=== PATIENT | male | born 1950 | race Caucasian/White ===

== ENCOUNTER → 2018-11-18 | Day surgery (SDC) | payer OTHER ==
[2018-11-14 12:13] LABS: BASOPHILS % 0.4 % (0.0-1.0); EOSINOPHILS # (AUTO) 0.3 (0.0-0.4); EOSINOPHILS % 4.4 % (0.0-6.0); HEMATOCRIT 41.5 % (38.2-49.6); HEMOGLOBIN 14.1 g/dL (14.0-18.0); LYMPHOCYTES # (AUTO) 1.4 (1.0-3.2); LYMPHOCYTES % 24.9 % (18.0-39.1); MEAN CORPUSCULAR HEMOGLOBIN 30.1 pg (28-32); MEAN CORPUSCULAR VOLUME 88.7 fL (81-99); MONOCYTES # (AUTO) 0.7 (0.2-0.8); NEUTROPHILS # (AUTO) 3.3 (2.1-6.9); NEUTROPHILS % 57.9 % (38.7-80.0); PLATELET COUNT 192 x10e3/uL (140-360); RED BLOOD COUNT 4.68 x10e6/uL (4.3-5.7); RED CELL DISTRIBUTION WIDTH 12.7 % (11.7-14.4)
[~2018-11-18] MED LIST: FENTANYL CITRATE/PF 100MCG/2 ML INJ ONE; HYOSCYAMINE SULFATE 0.5 MG/ML INJ ONE; KETAMINE HCL INJ 50 MG/ML 10 ML VIAL ONE; LEXAPRO10 MG PO; MIDAZOLAM HCL 2 MG/2 ML VIAL ONE; PROPOFOL IV EMULSION 10 MG/ML 50 ML VIAL ONE
[2018-11-18 10:05] VITALS: BP 140/81
--- NOTE | 2018-11-18 15:33 | Operative Report ---
DATE OF PROCEDURE: 11/18/2018 SURGEON: Enrique Yee MD PROCEDURE: Colonoscopy and polypectomy INDICATIONS FOR COLONOSCOPY: Rectal bleeding. MEDICATION: The patient was done under MAC, please see anesthesiologist's note. PROCEDURE IN DETAIL: With the patient in left lateral decubitus position, a flexible fiberoptic Olympus colonoscope was inserted into the rectum with ease and advanced all the way to the cecum. It was then withdrawn slowly. Mucosa overlying the cecum, ascending colon, transverse, descending appeared to be within normal limits. A minute polyp was hot biopsied from the sigmoid colon. The rectum appeared to be within normal limits. The scope was then retroflexed into the distal rectum and moderate-sized internal hemorrhoids were noted, none of which was actively bleeding. The internal hemorrhoid did prolapse, but were easily reducible. The scope was subsequently withdrawn. The patient tolerated procedure well. IMPRESSION: 1. Sigmoid colon polyp, hot biopsied. 2. Internal hemorrhoids, large, prolapsing, easily reducible. PLAN: Follow up histology. Initiate high-fiber, low-fat diet. Initiate high-fiber supplement. Start Anusol-HC suppositories b.i.d. x10 days and p.r.n. Will need General and Surgical opinion. Enrique Yee MD [facility] [place]IE /[id number] cc: Renato Ambrose DO
== END | disposition home or self-care (01) ==
LOC: OR 06:21
PROVIDERS: ATTEND Internal Medicine Gastroenterology
DX: K62.5 Hemorrhage of anus and rectum (principal); K63.5 Polyp of colon; K64.8 Other hemorrhoids; K21.9 Gastro-esophageal reflux disease without esophagitis; R03.0 Elevated blood-pressure reading, without diagnosis of hypertension; F41.9 Anxiety disorder, unspecified; Z88.1 Allergy status to other antibiotic agents; Z88.8 Allergy status to other drugs, medicaments and biological substances; Z01.810 Encounter for preprocedural cardiovascular examination; Z01.812 Encounter for preprocedural laboratory examination
CPT/HCPCS: 36415; 45384; 85025; 93005; J1980; J2250; J2704

== ENCOUNTER → 2021-10-03 | Day surgery (SDC) | payer MEDICARE, OTHER ==
[2021-10-01 09:35] LABS: BASOPHILS # (AUTO) 0.1 (0.0-0.1); EOSINOPHILS # (AUTO) 0.3 (0.0-0.4); EOSINOPHILS % 5.2 % (0.0-6.0); HEMATOCRIT 43.8 % (38.2-49.6); HEMOGLOBIN 14.2 g/dL (14.0-18.0); LYMPHOCYTES # (AUTO) 1.7 (1.0-3.2); LYMPHOCYTES % 32.8 % (18.0-39.1); MEAN CORPUSCULAR HEMOGLOBIN 29.8 pg (28-32); MEAN CORPUSCULAR HGB CONC 32.4 g/dL (31-35); MEAN CORPUSCULAR VOLUME 91.8 fL (81-99); MONOCYTES # (AUTO) 0.6 (0.2-0.8); MONOCYTES % 12.1 % (4.4-11.3); NEUTROPHILS # (AUTO) 2.5 (2.1-6.9); NEUTROPHILS % 48.7 % (38.7-80.0); PLATELET COUNT 180 x10e3/uL (140-360); RED BLOOD COUNT 4.77 x10e6/uL (4.3-5.7); RED CELL DISTRIBUTION WIDTH 12.6 % (11.7-14.4)
[~2021-10-03] MED LIST changes: -KETAMINE HCL INJ 50 MG/ML 10 ML VIAL ONE; +LIDOCAINE HCL 2% LOCAL INJ 5 ML SDV VIAL INJ ONE; +MULTI-VITAMIN1 EACH PO; +PROPOFOL IV EMULSION 10 MG/ML 20 ML VIAL ONE; -PROPOFOL IV EMULSION 10 MG/ML 50 ML VIAL ONE
[2021-10-03 12:55] VITALS: BP 107/64
== END | disposition home or self-care (01) ==
LOC: OR 09:02
PROVIDERS: ATTEND Internal Medicine Gastroenterology
DX: K64.8 Other hemorrhoids (principal); K63.5 Polyp of colon; K50.90 Crohn's disease, unspecified, without complications; Z71.3 Dietary counseling and surveillance; R00.1 Bradycardia, unspecified; F41.9 Anxiety disorder, unspecified; N20.0 Calculus of kidney; Z88.1 Allergy status to other antibiotic agents; Z91.041 Radiographic dye allergy status; Z01.810 Encounter for preprocedural cardiovascular examination; Z01.812 Encounter for preprocedural laboratory examination; Z20.822 Contact with and (suspected) exposure to COVID-19
CPT/HCPCS: 36415; 45380; 85025; 88305; 93005; J1980; J2001; J2250; J2704; J3010; U0002; 45378

== ENCOUNTER 2021-11-06 06:31 | Observation (INO) | payer MEDICARE, OTHER ==
[2021-11-03 09:41] LABS: BASOPHILS % 0.8 % (0.0-1.0); EOSINOPHILS # (AUTO) 0.2 (0.0-0.4); EOSINOPHILS % 4.1 % (0.0-6.0); HEMATOCRIT 42.3 % (38.2-49.6); HEMOGLOBIN 13.9 g/dL (14.0-18.0); LYMPHOCYTES # (AUTO) 1.6 (1.0-3.2); LYMPHOCYTES % 30.5 % (18.0-39.1); MEAN CORPUSCULAR HEMOGLOBIN 30.2 pg (28-32); MEAN CORPUSCULAR HGB CONC 32.9 g/dL (31-35); MEAN CORPUSCULAR VOLUME 91.8 fL (81-99); MONOCYTES # (AUTO) 0.6 (0.2-0.8); MONOCYTES % 11.7 % (4.4-11.3); NEUTROPHILS # (AUTO) 2.8 (2.1-6.9); NEUTROPHILS % 52.7 % (38.7-80.0); PLATELET COUNT 181 x10e3/uL (140-360); RED BLOOD COUNT 4.61 x10e6/uL (4.3-5.7); RED CELL DISTRIBUTION WIDTH 12.9 % (11.7-14.4)
[2021-11-03 09:58] LABS: ANION GAP 13.8 mmol/L (8-16); CALCIUM 9.7 mg/dL (8.4-10.2); CREATININE, SERUM 0.75 mg/dL (0.72-1.25); POTASSIUM 4.8 mmol/L (3.5-5.1)
[~2021-11-06] VITALS: Ht 172.7 cm; Wt 63.5 kg
[2021-11-06] VITALS (7 sets, daily range): BP systolic 116–153; BP diastolic 72–81
[2021-11-06] MEDS: SODIUM CHLORIDE 0.9% 1000ML 1,000 ML IV SCH ×2 (01:30→13:31)
[~2021-11-06 06:31] MED LIST changes: -FENTANYL CITRATE/PF 100MCG/2 ML INJ ONE; -HYOSCYAMINE SULFATE 0.5 MG/ML INJ ONE; -LIDOCAINE HCL 2% LOCAL INJ 5 ML SDV VIAL INJ ONE; -MIDAZOLAM HCL 2 MG/2 ML VIAL ONE; -PROPOFOL IV EMULSION 10 MG/ML 20 ML VIAL ONE
[2021-11-06] MEDS ORDERED: BUPIVACAINE 0.25% 30ML SDV ONE (08:20)
[2021-11-06] MEDS ORDERED: LIDOCAINE HCL 2% JELLY 5 ML TUBE ONE ×2 (08:20→09:38)
[2021-11-06] MEDS ORDERED: LIDOCAINE 2% /EPINEPHRINE 20 ML SDV INJ ONE (08:20)
[2021-11-06] MEDS ORDERED: HYDROMORPHONE 1MG/1ML INJ IV PRN (10:15)
[2021-11-06] MEDS ORDERED: HYDROCODONE/APAP 7.5MG-325MG 1 EA TAB PO PRN (10:15)
[2021-11-06] MEDS ORDERED: ONDANSETRON HCL INJ 2MG/ML 2ML 2 MG/ML VIAL IV PRN (10:15)
[2021-11-06] MEDS ORDERED: PROPOFOL IV EMULSION 10 MG/ML 20 ML VIAL ONE (12:25)
[2021-11-06] MEDS ORDERED: ONDANSETRON HCL INJ 2MG/ML 2ML 2 MG/ML VIAL ONE (12:25)
[2021-11-06] MEDS ORDERED: POVIDONE IODINE 0.05% 0.05 % ML PO ONE (12:25)
[2021-11-06] MEDS ORDERED: EPHEDRINE SULFATE INJ 50 MG/ML VIAL ONE (12:25)
[2021-11-06] MEDS ORDERED: LIDOCAINE HCL 2% LOCAL INJ 5 ML SDV VIAL INJ ONE (12:25)
[2021-11-06] MEDS ORDERED: SEVOFLURANE INHAL SOLN 250 ML PEN BTL ONE (12:25)
[2021-11-06] MEDS ORDERED: DEXAMETHASONE SOD PHOS INJ 4 MG/ML SDV ONE (12:25)
[2021-11-06] MEDS: Cefoxitin 1 GM in SODIUM CHLORIDE 0.9% 50ML 50 ML IV SCH ×2 (13:31→17:09)
[2021-11-06] MEDS ORDERED: MIDAZOLAM HCL 2 MG/2 ML VIAL ONE (17:31)
[2021-11-06] MEDS ORDERED: FENTANYL CITRATE/PF 100MCG/2 ML INJ ONE (17:31)
[2021-11-06] MEDS: TRIAMCINOLONE 0.1% OINTMENT 15 GM TUBE TP SCH (21:00)
[2021-11-06] MEDS: KETOROLAC TROMETHAMINE 30 MG/ML VIAL IV PRN (22:23)
[2021-11-07] VITALS: BP 119/64
[2021-11-07 04:00] VITALS: BP 114/66
[2021-11-07 08:14] VITALS: BP 131/75
[2021-11-07 08:17] VITALS: BP 131/75
[2021-11-07] MEDS: SODIUM CHLORIDE 0.9% 1000ML 1,000 ML IV SCH (09:53)
[2021-11-07] MEDS: TRIAMCINOLONE 0.1% OINTMENT 15 GM TUBE TP SCH (10:00)
[2021-11-07 11:44] VITALS: BP 133/73
[2021-11-07] MEDS: KETOROLAC TROMETHAMINE 30 MG/ML VIAL IV PRN (14:00)
== END 2021-11-07 14:28 | disposition home or self-care (01) ==
LOC: OR 06:31 → PACU V 10:05 → MED/SURG 12:06
PROVIDERS: ADMIT Surgery; ATTEND Surgery
DX: K64.5 Perianal venous thrombosis (principal); E78.5 Hyperlipidemia, unspecified; Z20.822 Contact with and (suspected) exposure to COVID-19
CPT/HCPCS: 36415; 46260; 71046; 80048; 85025; 88304; G0378 ×2; J0694; J1100; J1885 ×2; J2001 ×3; J2250; J2405; J2704; J3010; J7030 ×2; U0002